=== PATIENT | female | born 1965 | race Caucasian/White ===

== ENCOUNTER 2020-06-23 06:16 | Day surgery (SDC) | payer MEDICAID ==
[2020-06-23] VITALS (9 sets, daily range): BP systolic 91–121; BP diastolic 57–79
[~2020-06-23] VITALS: Ht 172.7 cm; Wt 58.4 kg
[~2020-06-23 06:16] MED LIST: clindamycin 600mg/D5W 50ml 50 ML IV ONE; clindamycin phosphate 150mg/ml inj. ONE
[2020-06-23] MEDS ORDERED: albumin 25% 100mL bottle x 1 IV PRN (06:40)
[2020-06-23] MEDS ORDERED: PNV1TABL7 PO (06:43)
[2020-06-23] MEDS ORDERED: PROP10TA10 PO (06:43)
[2020-06-23] MEDS ORDERED: PRED5TAB PO (06:43)
[2020-06-23] MEDS ORDERED: OXYC-658 PO (06:43)
[2020-06-23 09:58] LABS: GLUCOSE,BODY FLUID 102 MG/DL; LDH,BODY FLUID 54 U/L; TOTAL PROTEIN,BODY FLUID 2.2 G/DL
[2020-06-23 11:56] LABS: LYMPHOCYTES,BODY FLUID 26 %; MONOCYTES,BODY FLUID 28 %; NEUTROPHILS,BODY FLUID 46 %
[2020-06-23 11:57] LABS: BF MESOTHELIAL CELLS FEW; BF RBC COUNT 10625 /CU MM; BF WBC COUNT 99 /CU MM (0-1000); BFAPPEAR CLOUDY; BFCOLOR OTHER; BFVOLUME 50 ML
== END 2020-06-23 10:15 | disposition home or self-care (01) ==
LOC: SSTAY O 06:16
PROVIDERS: ATTEND Radiology Vascular & Interventional Radiology
DX: K70.31 Alcoholic cirrhosis of liver with ascites (principal); Z87.19 Personal history of other diseases of the digestive system; Z79.899 Other long term (current) drug therapy
CPT/HCPCS: 49083; 82945; 83615; 84157; 87070; 89051; J3490; P9047

== ENCOUNTER 2020-06-27 11:45 | Day surgery (SDC) | payer MEDICAID ==
[~2020-06-27] VITALS: Ht 174 cm; Wt 54.5 kg
[~2020-06-27 11:45] MED LIST changes: +OXYC-658 PO; +PNV1TABL7 PO; +PRED5TAB PO; +PROP10TA10 PO; -clindamycin 600mg/D5W 50ml 50 ML IV ONE; -clindamycin phosphate 150mg/ml inj. ONE
[2020-06-27 12:05] VITALS: BP 103/69
[2020-06-27] MEDS ORDERED: fentaNYL/PF 50MCG/1 ML 2ML syringe ONE (12:32)
[2020-06-27] MEDS ORDERED: MIDAZolam 1 MG/ML 5ML VIAL ONE (12:32)
[2020-06-27] MEDS ORDERED: LIDOcaine Viscous 15ml cup ONE (12:33)
[2020-06-27 12:45] VITALS: BP 112/70
[2020-06-27 12:55] VITALS: BP 103/60
[2020-06-27 13:05] VITALS: BP 105/64
[2020-06-27 13:15] VITALS: BP 105/64
== END 2020-06-27 13:20 | disposition home or self-care (01) ==
LOC: GI LAB 11:45
PROVIDERS: ATTEND Internal Medicine Gastroenterology
DX: I85.00 Esophageal varices without bleeding (principal); K31.7 Polyp of stomach and duodenum; K76.6 Portal hypertension; K31.89 Other diseases of stomach and duodenum; K74.60 Unspecified cirrhosis of liver
CPT/HCPCS: 43251; 99152; C1773; J2250; J3010; J7040; A4620

== ENCOUNTER 2020-06-30 07:06 | Day surgery (SDC) | payer MEDICAID ==
[2020-06-30] VITALS (13 sets, daily range): BP systolic 88–109; BP diastolic 53–69
[~2020-06-30] VITALS: Ht 172.7 cm; Wt 57.2 kg
[~2020-06-30 07:06] MED LIST changes: -OXYC-658 PO; -PRED5TAB PO; -PROP10TA10 PO
[2020-06-30] MEDS ORDERED: albumin 25% 100mL bottle x 1 IV PRN (07:55)
[2020-06-30] MEDS ORDERED: OXYC-481 PO (08:22)
== END 2020-06-30 11:50 | disposition home or self-care (01) ==
LOC: SSTAY O 07:06
PROVIDERS: ATTEND Radiology Vascular & Interventional Radiology
DX: K70.31 Alcoholic cirrhosis of liver with ascites (principal); Z87.19 Personal history of other diseases of the digestive system; Z79.899 Other long term (current) drug therapy
CPT/HCPCS: 49083; P9047

== ENCOUNTER 2020-07-08 07:13 | Day surgery (SDC) | payer MEDICAID ==
[~2020-07-08] VITALS: Ht 172.7 cm; Wt 57.8 kg
[2020-07-08] VITALS (15 sets, daily range): BP systolic 91–102; BP diastolic 55–69
[~2020-07-08 07:13] MED LIST changes: +OXYC-481 PO
[2020-07-08] MEDS ORDERED: albumin 25% 100mL bottle x 1 IV PRN (07:35)
== END 2020-07-08 12:00 | disposition home or self-care (01) ==
LOC: SSTAY O 07:13
PROVIDERS: ATTEND Radiology Diagnostic Radiology
DX: K70.31 Alcoholic cirrhosis of liver with ascites (principal); Z87.19 Personal history of other diseases of the digestive system; Z79.899 Other long term (current) drug therapy; Z72.89 Other problems related to lifestyle
CPT/HCPCS: 49083; P9047

== ENCOUNTER 2020-07-15 06:57 | Day surgery (SDC) | payer MEDICAID ==
[~2020-07-15] VITALS: Ht 172.7 cm; Wt 54.2 kg
[2020-07-15] VITALS (11 sets, daily range): BP systolic 87–119; BP diastolic 46–93
[2020-07-15] MEDS ORDERED: albumin 25% 100mL bottle x 1 IV PRN (07:25)
[2020-07-15] MEDS ORDERED: PRED15SO68 PO (07:29)
[2020-07-15] MEDS ORDERED: PROP20TA6 PO (07:29)
== END 2020-07-15 11:05 | disposition home or self-care (01) ==
LOC: SSTAY O 06:57
PROVIDERS: ATTEND Radiology Vascular & Interventional Radiology
DX: K70.31 Alcoholic cirrhosis of liver with ascites (principal); Z87.19 Personal history of other diseases of the digestive system; Z79.899 Other long term (current) drug therapy; Z72.89 Other problems related to lifestyle
CPT/HCPCS: 49083; P9047

== ENCOUNTER 2020-07-18 13:08 | Emergency (ER) | payer MEDICAID ==
[~2020-07-18] VITALS: Ht 172.7 cm; Wt 50.9 kg
[~2020-07-18 13:08] MED LIST changes: +PRED15SO68 PO; +PROP20TA6 PO
[2020-07-18] MEDS ORDERED: piperacillin/tazo 3.375gm/50ml 50 ML IV ONE (14:45)
[2020-07-18] MEDS ORDERED: normal saline 1000ML IV soln IV ONE (14:45)
[2020-07-18] MEDS ORDERED: morphine 4 MG/ML inj SYRINge IV PRN (14:45)
[2020-07-18] MEDS ORDERED: ondansetron/PF 4mg/2ml inj IV ONE (14:45)
[2020-07-18] MEDS ORDERED: normal saline 1000ML IV soln IVB ONE (14:45)
[2020-07-18 14:56] LABS: BASOPHILS % (AUTO) 0.7 % (0-1); EOSINOPHILS # (AUTO) 0.1 X10'3 (0-0.9); EOSINOPHILS % (AUTO) 1.3 % (0-6); HEMATOCRIT 32.8 % (35.0-45.0); HEMOGLOBIN 11.1 g/dl (12.0-16.0); LYMPHOCYTES # (AUTO) 0.9 X10'3 (1.1-4.8); LYMPHOCYTES % (AUTO) 22.4 % (21-51); MEAN CORPUSCULAR HEMOGLOBIN 36.2 PG (27.0-31.0); MEAN CORPUSCULAR HGB CONC 33.9 g/dL (33.0-36.5); MEAN CORPUSCULAR VOLUME 106.6 FL (78-98); MEAN PLATELET VOLUME 7.2 FL (7.4-10.4); MONOCYTES # (AUTO) 0.8 X10'3 (0-0.9); MONOCYTES % (AUTO) 19.4 % (2-12); NEUTROPHILS # (AUTO) 2.3 X10'3 (1.8-7.7); NEUTROPHILS % (AUTO) 56.2 % (42-75); PLATELET COUNT 193 X10'3 (140-440); RED BLOOD COUNT 3.08 X10'6 (4.20-5.60); RED CELL DISTRIBUTION WIDTH 13.4 % (11.5-14.5)
[2020-07-18 15:12] LABS: ALANINE AMINOTRANSFERASE 26 U/L (12-78); ALBUMIN 2.5 G/DL (3.4-5.0); ALBUMIN/GLOBULIN RATIO 0.6 (1.1-1.5); ALKALINE PHOSPHATASE 105 IU/L (46-116); ANION GAP 10 (8-16); ASPARTATE AMINO TRANSFERASE 59 U/L (10-37); BILIRUBIN,TOTAL 2.3 MG/DL (0.1-1.0); BLOOD UREA NITROGEN 10 MG/DL (7-18); BUN/CREATININE RATIO 14.9 (6.6-38.0); CALCIUM 8.7 MG/DL (8.5-10.1); CHLORIDE 103 MMOL/L (99-107); CREATININE 0.67 MG/DL (0.40-0.90); GLUCOSE 113 MG/DL (70-104); POTASSIUM 4.5 MMOL/L (3.5-5.1); SODIUM 135 MMOL/L (135-145); TOTAL CARBON DIOXIDE 21.6 MMOL/L (24-32); TOTAL PROTEIN 6.9 G/DL (6.4-8.2); eGFR > 90 ML/MIN
[2020-07-18 15:50] LABS: TOTAL CELLS COUNTED 100
[2020-07-18 15:51] LABS: PLATELET ESTIMATE NORMAL
[2020-07-18] MEDS ORDERED: CEPH250T PO (16:24)
[2020-07-18] MEDS ORDERED: TRAM50TA2 PO (17:25)
[2020-07-18 17:38] VITALS: BP 90/57
== END 2020-07-18 17:25 | disposition home or self-care (01) ==
LOC: ER 13:09
DX: K70.31 Alcoholic cirrhosis of liver with ascites (principal); R19.09 Other intra-abdominal and pelvic swelling, mass and lump; R10.84 Generalized abdominal pain; Z72.89 Other problems related to lifestyle; Z79.2 Long term (current) use of antibiotics; Z79.899 Other long term (current) drug therapy
CPT/HCPCS: 36415; 74176; 80053; 83605; 84145; 85007; 85025; 87040; 96365; 96375; 99284; J2270; J2405; J2543; J7030

== ENCOUNTER 2020-07-28 06:38 | Day surgery (SDC) | payer MEDICAID ==
[2020-07-28] VITALS (8 sets, daily range): BP systolic 97–112; BP diastolic 52–76
[~2020-07-28] VITALS: Ht 172.7 cm; Wt 55.6 kg
[~2020-07-28 06:38] MED LIST changes: +CEPH250T PO; +TRAM50TA2 PO
[2020-07-28] MEDS ORDERED: albumin 25% 100mL bottle x 1 IV PRN (07:10)
[2020-07-28] MEDS ORDERED: TRAM50TA2 PO (08:04)
[2020-07-28] MEDS ORDERED: CEPH250T PO (08:05)
[2020-07-28] MEDS ORDERED: oxyCODONE IR 5mg (immed. release) tablet PO ONE (09:05)
[2020-07-28] MEDS ORDERED: traMADol 50MG tablet PO ONE (09:05)
== END 2020-07-28 10:45 | disposition home or self-care (01) ==
LOC: SSTAY O 06:38
PROVIDERS: ATTEND Radiology Vascular & Interventional Radiology
DX: K70.31 Alcoholic cirrhosis of liver with ascites (principal); Z87.19 Personal history of other diseases of the digestive system; Z79.899 Other long term (current) drug therapy
CPT/HCPCS: 49083; P9047

== ENCOUNTER 2020-08-04 07:54 | Day surgery (SDC) | payer MEDICAID ==
[~2020-08-04] VITALS: Ht 172.7 cm; Wt 53.8 kg
[2020-08-04] VITALS (8 sets, daily range): BP systolic 80–101; BP diastolic 48–70
[~2020-08-04 07:54] MED LIST changes: -PRED15SO68 PO; -PROP20TA6 PO
[2020-08-04] MEDS ORDERED: albumin 25% 100mL bottle x 1 IV PRN (08:25)
== END 2020-08-04 11:41 | disposition home or self-care (01) ==
LOC: SSTAY O 07:54
PROVIDERS: ATTEND Radiology Vascular & Interventional Radiology
DX: K70.31 Alcoholic cirrhosis of liver with ascites (principal); G89.29 Other chronic pain; Z79.899 Other long term (current) drug therapy; Z87.19 Personal history of other diseases of the digestive system
CPT/HCPCS: 49083; P9047

== ENCOUNTER 2020-08-12 07:51 | Day surgery (SDC) | payer MEDICAID ==
[~2020-08-12] VITALS: Ht 172.7 cm; Wt 53.1 kg
[2020-08-12] VITALS (8 sets, daily range): BP systolic 95–111; BP diastolic 55–72
[~2020-08-12 07:51] MED LIST changes: -CEPH250T PO
[2020-08-12] MEDS ORDERED: albumin 25% 100mL bottle x 1 IV PRN (08:05)
== END 2020-08-12 10:48 | disposition home or self-care (01) ==
LOC: SSTAY O 07:51
PROVIDERS: ATTEND Radiology Diagnostic Radiology
DX: K70.31 Alcoholic cirrhosis of liver with ascites (principal); G89.29 Other chronic pain; Z87.19 Personal history of other diseases of the digestive system; Z72.89 Other problems related to lifestyle; Z79.899 Other long term (current) drug therapy
CPT/HCPCS: 49083; P9047

== ENCOUNTER 2020-08-22 07:26 | Day surgery (SDC) | payer MEDICAID ==
[2020-08-22] VITALS (8 sets, daily range): BP systolic 90–97; BP diastolic 48–84
[~2020-08-22] VITALS: Ht 172.7 cm; Wt 55.0 kg
[~2020-08-22 07:26] MED LIST changes: -TRAM50TA2 PO
[2020-08-22] MEDS ORDERED: albumin 25% 100mL bottle x 1 IV PRN (07:40)
== END 2020-08-22 10:30 | disposition home or self-care (01) ==
LOC: SSTAY O 07:26
PROVIDERS: ATTEND Radiology Vascular & Interventional Radiology
DX: K70.31 Alcoholic cirrhosis of liver with ascites (principal); G89.29 Other chronic pain; Z79.899 Other long term (current) drug therapy; Z87.19 Personal history of other diseases of the digestive system
CPT/HCPCS: 49083; P9047

== ENCOUNTER 2020-08-26 06:39 | Day surgery (SDC) | payer MEDICAID ==
[2020-08-26] VITALS (8 sets, daily range): BP systolic 90–105; BP diastolic 57–66
[~2020-08-26] VITALS: Ht 172.7 cm; Wt 52.5 kg
[2020-08-26] MEDS ORDERED: albumin 25% 100mL bottle x 1 IV PRN (06:55)
[2020-08-26] MEDS ORDERED: LACT1CAP57 PO (06:58)
== END 2020-08-26 10:00 | disposition home or self-care (01) ==
LOC: SSTAY O 06:39
PROVIDERS: ATTEND Radiology Vascular & Interventional Radiology
DX: K70.31 Alcoholic cirrhosis of liver with ascites (principal); G89.29 Other chronic pain; Z87.19 Personal history of other diseases of the digestive system; Z72.89 Other problems related to lifestyle; Z79.899 Other long term (current) drug therapy
CPT/HCPCS: 49083; P9047

== ENCOUNTER 2020-09-01 07:22 | Day surgery (SDC) | payer MEDICAID ==
[2020-09-01] VITALS (8 sets, daily range): BP systolic 90–122; BP diastolic 57–69
[~2020-09-01] VITALS: Ht 172.7 cm; Wt 53.9 kg
[~2020-09-01 07:22] MED LIST changes: +LACT1CAP57 PO
[2020-09-01] MEDS ORDERED: SPIR25TA5 PO (08:13)
[2020-09-01] MEDS ORDERED: albumin (human) 25% 100 ML IV solution IV ONE (10:05)
[2020-09-01] MEDS ORDERED: normal saline 1000ml 1,000 ML IV SCH (10:05)
== END 2020-09-01 11:00 | disposition home or self-care (01) ==
LOC: SSTAY O 07:22
PROVIDERS: ATTEND Radiology Diagnostic Radiology
DX: K70.31 Alcoholic cirrhosis of liver with ascites (principal); G89.29 Other chronic pain; Z87.19 Personal history of other diseases of the digestive system; Z79.899 Other long term (current) drug therapy
CPT/HCPCS: 49083; P9047

== ENCOUNTER 2020-09-05 14:57 | Emergency (ER) | payer MEDICAID ==
[~2020-09-05] VITALS: Ht 172.7 cm; Wt 52.3 kg
[~2020-09-05 14:57] MED LIST changes: +SPIR25TA5 PO
[2020-09-05 18:42] LABS: BASOPHILS % (AUTO) 0.6 % (0-1); EOSINOPHILS # (AUTO) 0.1 X10'3 (0-0.9); EOSINOPHILS % (AUTO) 1.1 % (0-6); HEMATOCRIT 33.5 % (35.0-45.0); HEMOGLOBIN 11.5 g/dl (12.0-16.0); LYMPHOCYTES % (AUTO) 16.6 % (21-51); MEAN CORPUSCULAR HEMOGLOBIN 34.3 PG (27.0-31.0); MEAN CORPUSCULAR HGB CONC 34.4 g/dL (33.0-36.5); MEAN CORPUSCULAR VOLUME 99.8 FL (78-98); MEAN PLATELET VOLUME 7.1 FL (7.4-10.4); MONOCYTES # (AUTO) 0.8 X10'3 (0-0.9); MONOCYTES % (AUTO) 12.5 % (2-12); NEUTROPHILS # (AUTO) 4.2 X10'3 (1.8-7.7); NEUTROPHILS % (AUTO) 69.2 % (42-75); PLATELET COUNT 197 X10'3 (140-440); RED BLOOD COUNT 3.36 X10'6 (4.20-5.60); RED CELL DISTRIBUTION WIDTH 14.8 % (11.5-14.5); WHITE BLOOD COUNT 6.1 X10'3 (4.5-11.0)
[2020-09-05 19:02] LABS: CLARITY,URINE SLIGHTLY CLOUDY (Clear); COLOR,URINE YELLOW (Yellow); GLUCOSE, URINE NEGATIVE (Neg); KETONES,URINE NEGATIVE (Neg); LEUKOCYTE ESTERASE ,URINE NEGATIVE (Neg); NITRITES, URINE NEGATIVE (Neg); OCCULT BLOOD,URINE NEGATIVE (Neg); PROTEIN,URINE NEGATIVE (Neg)
[2020-09-05 19:08] LABS: ALANINE AMINOTRANSFERASE 21 U/L (12-78); ALBUMIN 2.6 G/DL (3.4-5.0); ALBUMIN/GLOBULIN RATIO 0.6 (1.1-1.5); ALKALINE PHOSPHATASE 107 IU/L (46-116); ANION GAP 9 (8-16); ASPARTATE AMINO TRANSFERASE 49 U/L (10-37); BILIRUBIN,TOTAL 1.9 MG/DL (0.1-1.0); BLOOD UREA NITROGEN 12 MG/DL (7-18); CALCIUM 8.2 MG/DL (8.5-10.1); CHLORIDE 97 MMOL/L (99-107); GLUCOSE 96 MG/DL (70-104); SODIUM 129 MMOL/L (135-145); TOTAL CARBON DIOXIDE 23.5 MMOL/L (24-32); TOTAL PROTEIN 6.9 G/DL (6.4-8.2); eGFR > 90 ML/MIN
[2020-09-05 19:10] LABS: UA COLLECTION TYPE CLN CATCH MIDSTREAM
[2020-09-05 19:11] LABS: BACTERIA,URINE FEW /HPF (Neg); MUCUS STRANDS MANY /LPF (Neg); RBC,URINE 0-2 /HPF (0-2); SQUAMOUS EPITHELIAL CELL,UR MODERATE /LPF (FEW); WBC,URINE 0-4 /HPF (0-4)
[2020-09-05] MEDS ORDERED: PROCHC RC (19:32)
[2020-09-05] MEDS ORDERED: oxyCODONE IR 5mg (immed. release) tablet PO ONE (19:40)
[2020-09-05 19:59] VITALS: BP 95/64
== END 2020-09-05 19:40 | disposition home or self-care (01) ==
LOC: ER 14:58
DX: K62.5 Hemorrhage of anus and rectum (principal); Z79.899 Other long term (current) drug therapy
CPT/HCPCS: 36415; 80053; 81001; 85025; 99283

== ENCOUNTER 2020-09-09 07:05 | Day surgery (SDC) | payer MEDICAID ==
[~2020-09-09] VITALS: Ht 172.7 cm; Wt 54.3 kg
[2020-09-09] VITALS (9 sets, daily range): BP systolic 90–112; BP diastolic 52–67
[~2020-09-09 07:05] MED LIST changes: +PROCHC RC
[2020-09-09] MEDS ORDERED: RIFA200T2 PO (07:22)
[2020-09-09] MEDS ORDERED: albumin 25% 100mL bottle x 1 IV PRN (07:35)
[2020-09-09] MEDS ORDERED: LIDOcaine 1% (10mg/ml) 2ml vial ONE (07:41)
== END 2020-09-09 10:55 | disposition home or self-care (01) ==
LOC: SSTAY O 07:05
PROVIDERS: ATTEND Radiology Vascular & Interventional Radiology
DX: K70.31 Alcoholic cirrhosis of liver with ascites (principal); G89.29 Other chronic pain; Z87.19 Personal history of other diseases of the digestive system; Z72.89 Other problems related to lifestyle
CPT/HCPCS: 49083; J2001; P9047

== ENCOUNTER 2020-09-16 07:08 | Day surgery (SDC) | payer MEDICAID ==
[2020-09-16] VITALS (9 sets, daily range): BP systolic 93–109; BP diastolic 51–70
[~2020-09-16] VITALS: Ht 172.7 cm; Wt 55.9 kg
[~2020-09-16 07:08] MED LIST changes: -LACT1CAP57 PO; +RIFA200T2 PO
[2020-09-16] MEDS ORDERED: albumin 25% 100mL bottle x 1 IV PRN (07:30)
== END 2020-09-16 11:08 | disposition home or self-care (01) ==
LOC: SSTAY O 07:08
PROVIDERS: ATTEND Radiology Vascular & Interventional Radiology
DX: K70.31 Alcoholic cirrhosis of liver with ascites (principal); G89.29 Other chronic pain; Z79.899 Other long term (current) drug therapy
CPT/HCPCS: 49083; P9047

== ENCOUNTER 2020-09-23 06:57 | Day surgery (SDC) | payer MEDICAID ==
[2020-09-23] VITALS (9 sets, daily range): BP systolic 92–128; BP diastolic 37–84
[~2020-09-23] VITALS: Ht 172.7 cm; Wt 57.2 kg
[~2020-09-23 06:57] MED LIST changes: -PROCHC RC
[2020-09-23] MEDS ORDERED: albumin 25% 100mL bottle x 1 IV PRN (07:15)
[2020-09-23] MEDS ORDERED: normal saline 1000ml 1,000 ML IV PRN (07:15)
== END 2020-09-23 11:00 | disposition home or self-care (01) ==
LOC: SSTAY O 06:57
PROVIDERS: ATTEND Radiology Vascular & Interventional Radiology
DX: K70.31 Alcoholic cirrhosis of liver with ascites (principal); R14.0 Abdominal distension (gaseous); G89.29 Other chronic pain; M54.9 Dorsalgia, unspecified; Z79.899 Other long term (current) drug therapy; Z98.890 Other specified postprocedural states
CPT/HCPCS: 49083; P9047

== ENCOUNTER 2020-09-29 06:54 | Day surgery (SDC) | payer MEDICAID ==
[2020-09-29] VITALS (7 sets, daily range): BP systolic 98–130; BP diastolic 64–81
[~2020-09-29] VITALS: Ht 172.7 cm; Wt 58.1 kg
[~2020-09-29 06:54] MED LIST changes: -SPIR25TA5 PO
[2020-09-29] MEDS ORDERED: albumin 25% 100mL bottle x 1 IV PRN (07:30)
== END 2020-09-29 11:00 | disposition home or self-care (01) ==
LOC: SSTAY O 06:54
PROVIDERS: ATTEND Radiology Diagnostic Radiology
DX: K70.31 Alcoholic cirrhosis of liver with ascites (principal); G89.29 Other chronic pain; Z87.19 Personal history of other diseases of the digestive system; Z72.89 Other problems related to lifestyle
CPT/HCPCS: 49083; P9047

== ENCOUNTER 2020-10-05 09:50 | Emergency (ER) | payer MEDICAID ==
[~2020-10-05] VITALS: Ht 172.7 cm; Wt 55.9 kg
[2020-10-05 10:31] LABS: BASOPHILS % (AUTO) 0.4 % (0-1); EOSINOPHILS # (AUTO) 0.1 X10'3 (0-0.9); EOSINOPHILS % (AUTO) 0.8 % (0-6); HEMATOCRIT 33.3 % (35.0-45.0); HEMOGLOBIN 11.4 g/dl (12.0-16.0); LYMPHOCYTES # (AUTO) 0.7 X10'3 (1.1-4.8); LYMPHOCYTES % (AUTO) 10.7 % (21-51); MEAN CORPUSCULAR HEMOGLOBIN 33.1 PG (27.0-31.0); MEAN CORPUSCULAR HGB CONC 34.2 g/dL (33.0-36.5); MEAN CORPUSCULAR VOLUME 96.6 FL (78-98); MEAN PLATELET VOLUME 6.7 FL (7.4-10.4); MONOCYTES # (AUTO) 1.2 X10'3 (0-0.9); MONOCYTES % (AUTO) 18.1 % (2-12); NEUTROPHILS # (AUTO) 4.6 X10'3 (1.8-7.7); PLATELET COUNT 264 X10'3 (140-440); RED BLOOD COUNT 3.45 X10'6 (4.20-5.60); RED CELL DISTRIBUTION WIDTH 14.7 % (11.5-14.5); WHITE BLOOD COUNT 6.6 X10'3 (4.5-11.0)
[2020-10-05 10:44] LABS: PARTIAL THROMBOPLASTIN TIME 31 SECONDS (22-32)
[2020-10-05 10:47] LABS: PLATELET ESTIMATE NORMAL; TOTAL CELLS COUNTED 100
[2020-10-05 10:48] LABS: ALANINE AMINOTRANSFERASE 27 U/L (12-78); ALBUMIN 2.3 G/DL (3.4-5.0); ALBUMIN/GLOBULIN RATIO 0.5 (1.1-1.5); ALKALINE PHOSPHATASE 123 IU/L (46-116); ANION GAP 7 (8-16); ASPARTATE AMINO TRANSFERASE 57 U/L (10-37); BILIRUBIN,TOTAL 2.1 MG/DL (0.1-1.0); BLOOD UREA NITROGEN 15 MG/DL (7-18); BUN/CREATININE RATIO 23.8 (6.6-38.0); BURR CELLS FEW; CALCIUM 7.9 MG/DL (8.5-10.1); CHLORIDE 91 MMOL/L (99-107); CREATININE 0.63 MG/DL (0.40-0.90); GLUCOSE 124 MG/DL (70-104); LIPASE < 50 U/L (73-393); MAGNESIUM 1.9 MG/DL (1.5-2.4); TOTAL CARBON DIOXIDE 21.6 MMOL/L (24-32); TOTAL PROTEIN 6.9 G/DL (6.4-8.2); eGFR > 90 ML/MIN
[2020-10-05 10:49] LABS: POLYCHROMASIA FEW
[2020-10-05 10:55] LABS: SODIUM 120 MMOL/L (135-145)
[2020-10-05] MEDS ORDERED: albumin (human) 25% 100 ML IV solution IV ONE ×2 (11:30→15:15)
--- NOTE | 2020-10-05 13:00 | NUR ---
notified dr cunningham that paracentesis fluid stopped draining as per md he will check in few mins.
[2020-10-05] MEDS ORDERED: morphine 4 MG/ML inj SYRINge IV ONE (13:55)
[2020-10-05] MEDS ORDERED: ENZY1CAP5 PO (14:17)
[2020-10-05] MEDS ORDERED: LYSI500T11 PO (14:17)
[2020-10-05] MEDS ORDERED: CALC-1051 PO (14:17)
[2020-10-05] MEDS ORDERED: RIFA550T PO (14:17)
[2020-10-05] MEDS ORDERED: magnesium hydroxide 30ml (MOM) UD suspension PO PRN (14:40)
[2020-10-05] MEDS ORDERED: ondansetron/PF 4mg/2ml inj IV PRN (14:40)
[2020-10-05] MEDS ORDERED: acetaminophen 325mg tablet PO PRN (14:40)
[2020-10-05] MEDS ORDERED: mag hydrox/Alum hydrox/simeth 30ml oral suspension PO PRN (14:40)
[2020-10-05] MEDS ORDERED: normal saline 1000ml 1,000 ML IV SCH (16:05)
[2020-10-05] MEDS ORDERED: oxyCODONE IR 5mg (immed. release) tablet PO PRN (16:10)
[2020-10-05] MEDS ORDERED: [UNRECOGNIZED DRUG - OTHER] PO PRN (16:10)
[2020-10-05] MEDS: morphine 2 MG/ML inj. syringe IV PRN ×2 (16:48→19:52)
[2020-10-05] MEDS ORDERED: bumetanide 0.25mg/ml 4ml vial IV SCH (19:45)
[2020-10-05] MEDS ORDERED: morphine 2 MG/ML inj. syringe IV PRN (19:45)
[2020-10-05] MEDS ORDERED: rifaximin 550mg tablet PO SCH (20:00)
[2020-10-05] MEDS ORDERED: furosemide 20 MG/2 ML vial IV SCH (20:00)
[2020-10-05 21:11] VITALS: BP 97/59
[2020-10-06] MEDS ORDERED: multivitamins, therapeutics tablet PO SCH (08:00)
[2020-10-06] MEDS ORDERED: enoxaparin 40mg/0.4ml syringe SUBCUT SCH (08:00)
[2020-10-06] MEDS ORDERED: calcium carbonate/vitamin D3 tablet PO SCH (08:00)
== END 2020-10-05 21:13 | disposition short-term general hospital (02) ==
LOC: ER 09:51 → ED HOLD 14:36 → UNDOADMIN 14:36 → UNDODISIN 21:10
DX: E87.1 Hypo-osmolality and hyponatremia (principal); Z20.822 Contact with and (suspected) exposure to COVID-19; K72.00 Acute and subacute hepatic failure without coma; R10.84 Generalized abdominal pain; I10 Essential (primary) hypertension; Z72.89 Other problems related to lifestyle; Z88.8 Allergy status to other drugs, medicaments and biological substances; Z79.899 Other long term (current) drug therapy
CPT/HCPCS: 49083; 76705; 80053; 82140; 83690; 83735; 85007; 85025; 85610; 85730; 87635; 93306; 96361; 96374; 96375; 96376; 99291; J2270; J7030; P9047; G0378

== ENCOUNTER 2020-10-21 07:38 | Day surgery (SDC) | payer MEDICAID ==
[~2020-10-21] VITALS: Ht 172.7 cm; Wt 54.8 kg
[~2020-10-21 07:38] MED LIST changes: +CALC-1051 PO; +ENZY1CAP5 PO; +LYSI500T11 PO; -RIFA200T2 PO; +RIFA550T PO
[2020-10-21] MEDS ORDERED: LACT10SO3 PO (07:59)
[2020-10-21 08:14] VITALS: BP 101/59
== END 2020-10-21 09:30 | disposition home or self-care (01) ==
LOC: SSTAY O 07:38
PROVIDERS: ATTEND Radiology Vascular & Interventional Radiology
DX: K70.31 Alcoholic cirrhosis of liver with ascites (principal); Z53.8 Procedure and treatment not carried out for other reasons; G89.29 Other chronic pain; Z98.890 Other specified postprocedural states; Z72.89 Other problems related to lifestyle
CPT/HCPCS: 76705

== ENCOUNTER 2020-10-27 09:13 | Day surgery (SDC) | payer MEDICAID ==
[~2020-10-27] VITALS: Ht 172.7 cm; Wt 57.9 kg
[~2020-10-27 09:13] MED LIST changes: +LACT10SO3 PO; -RIFA550T PO
[2020-10-27 09:40] VITALS: BP 108/64
[2020-10-27 09:45] VITALS: BP 108/64
[2020-10-27] MEDS ORDERED: normal saline 1000ml 1,000 ML IV PRN (09:45)
[2020-10-27] MEDS ORDERED: albumin 25% 100mL bottle x 1 IV PRN (09:45)
[2020-10-27 10:05] VITALS: BP 108/68
[2020-10-27 10:20] VITALS: BP 100/69
[2020-10-27 10:35] VITALS: BP_SYST 103; BP_SYST 105; BP_DIAS 64; BP_DIAS 65
== END 2020-10-27 11:00 | disposition home or self-care (01) ==
LOC: SSTAY O 09:13
PROVIDERS: ATTEND Radiology Vascular & Interventional Radiology
DX: K70.31 Alcoholic cirrhosis of liver with ascites (principal); G89.29 Other chronic pain; Z98.890 Other specified postprocedural states; Z87.19 Personal history of other diseases of the digestive system
CPT/HCPCS: 49083

== ENCOUNTER 2020-10-31 16:00 | Emergency (ER) | payer MEDICAID ==
[~2020-10-31] VITALS: Ht 172.7 cm; Wt 55.7 kg
[2020-10-31 16:11] VITALS: BP 111/65
[2020-10-31 17:07] LABS: BASOPHILS % (AUTO) 0.6 % (0-1); EOSINOPHILS # (AUTO) 0.1 X10'3 (0-0.9); EOSINOPHILS % (AUTO) 2.4 % (0-6); HEMATOCRIT 30.4 % (35.0-45.0); HEMOGLOBIN 10.3 g/dl (12.0-16.0); LYMPHOCYTES % (AUTO) 21.6 % (21-51); MEAN CORPUSCULAR HEMOGLOBIN 33.5 PG (27.0-31.0); MEAN CORPUSCULAR HGB CONC 33.9 g/dL (33.0-36.5); MEAN CORPUSCULAR VOLUME 98.7 FL (78-98); MEAN PLATELET VOLUME 6.5 FL (7.4-10.4); MONOCYTES # (AUTO) 0.9 X10'3 (0-0.9); MONOCYTES % (AUTO) 19.2 % (2-12); NEUTROPHILS # (AUTO) 2.5 X10'3 (1.8-7.7); NEUTROPHILS % (AUTO) 56.2 % (42-75); PLATELET COUNT 155 X10'3 (140-440); RED BLOOD COUNT 3.08 X10'6 (4.20-5.60); RED CELL DISTRIBUTION WIDTH 17.3 % (11.5-14.5); WHITE BLOOD COUNT 4.4 X10'3 (4.5-11.0)
[2020-10-31 17:19] LABS: ALANINE AMINOTRANSFERASE 13 U/L (12-78); ALBUMIN 2.6 G/DL (3.4-5.0); ALBUMIN/GLOBULIN RATIO 0.7 (1.1-1.5); ALKALINE PHOSPHATASE 89 IU/L (46-116); ANION GAP 7 (8-16); ASPARTATE AMINO TRANSFERASE 31 U/L (10-37); BILIRUBIN,TOTAL 2.8 MG/DL (0.1-1.0); BLOOD UREA NITROGEN 8 MG/DL (7-18); BUN/CREATININE RATIO 14.5 (6.6-38.0); CALCIUM 7.7 MG/DL (8.5-10.1); CHLORIDE 103 MMOL/L (99-107); CREATININE 0.55 MG/DL (0.40-0.90); GLUCOSE 97 MG/DL (70-104); MAGNESIUM 1.6 MG/DL (1.5-2.4); POTASSIUM 3.2 MMOL/L (3.5-5.1); SODIUM 138 MMOL/L (135-145); TOTAL PROTEIN 6.4 G/DL (6.4-8.2); eGFR > 90 ML/MIN
[2020-10-31 21:03] LABS: BILIRUBIN,DIRECT 0.8 MG/DL (0-0.3)
[2020-10-31] MEDS ORDERED: potassium Cl 20 mEq SR tablet PO ONE ×2 (21:10→22:10)
[2020-10-31 21:31] LABS: CLARITY,URINE CLOUDY (Clear); COLOR,URINE DARK YELLOW (Yellow); GLUCOSE, URINE NEGATIVE (Neg); KETONES,URINE TRACE mg/dl (Neg); LEUKOCYTE ESTERASE ,URINE NEGATIVE (Neg); NITRITES, URINE NEGATIVE (Neg); OCCULT BLOOD,URINE NEGATIVE (Neg); PH,URINE 5.5 (4.8-8.0); PROTEIN,URINE TRACE mg/dl (Neg); UA COLLECTION TYPE CLN CATCH MIDSTREAM
[2020-10-31] MEDS ORDERED: iohexol 300mg/ml 100ml inj. ONE (21:35)
[2020-10-31 21:43] LABS: BACTERIA,URINE NONE SEEN /HPF (Neg); HYALINE CASTS 0-3 /LPF (NEGATIVE); MUCUS STRANDS MANY /LPF (Neg); RBC,URINE NONE SEEN /HPF (0-2); SQUAMOUS EPITHELIAL CELL,UR MODERATE /LPF (FEW); WBC,URINE 0-4 /HPF (0-4)
[2020-10-31 21:44] LABS: RENAL CELLS, URINE FEW /HPF; TRANSITIONAL EPI CELLS,URINE FEW /HPF
[2020-10-31] MEDS ORDERED: ondansetron 4mg rapidly disintigrating tab PO ONE (23:05)
[2020-10-31] MEDS ORDERED: HYDROcodone/acetaminophen 5mg/325mg tablet PO ONE (23:05)
[2020-11-01 01:45] LABS: BANDS% (MANUAL) 2 % (0-10); LYMPHOCYTES % (MANUAL) 23 % (21-51); MONOCYTES % (MANUAL) 13 % (2-12); NEUTROPHILS % (MANUAL) 60 % (42-75); TOTAL CELLS COUNTED 100
[2020-11-01 01:46] LABS: EOSINOPHILS % (MANUAL) 2 % (0-6)
[2020-11-01 01:48] LABS: PLATELET ESTIMATE NORMAL
[2020-11-01 01:50] LABS: ANISOCYTOSIS 1+
== END 2020-11-01 02:07 | disposition home or self-care (01) ==
LOC: ER 16:02
DX: R18.8 Other ascites (principal); R10.31 Right lower quadrant pain; R10.13 Epigastric pain; K74.60 Unspecified cirrhosis of liver; I86.8 Varicose veins of other specified sites; K76.6 Portal hypertension; Z72.89 Other problems related to lifestyle; Z88.8 Allergy status to other drugs, medicaments and biological substances; Z79.899 Other long term (current) drug therapy
CPT/HCPCS: 36415; 71045; 74176; 80053; 81001; 82248; 83735; 85007; 85025; 99285; Q9967

== ENCOUNTER 2020-11-07 07:02 | Day surgery (SDC) | payer MEDICAID ==
[2020-11-07] VITALS (17 sets, daily range): BP systolic 90–112; BP diastolic 53–83
[~2020-11-07] VITALS: Ht 172.7 cm; Wt 57.4 kg
[2020-11-07] MEDS ORDERED: albumin 25% 100mL bottle x 1 IV PRN (07:20)
[2020-11-07] MEDS ORDERED: SPIR1TAB4 PO (07:25)
[2020-11-07] MEDS ORDERED: FURO-150 PO (07:26)
== END 2020-11-07 12:05 | disposition home or self-care (01) ==
LOC: SSTAY O 07:02
PROVIDERS: ATTEND Radiology Vascular & Interventional Radiology
DX: K70.31 Alcoholic cirrhosis of liver with ascites (principal); I10 Essential (primary) hypertension; K76.6 Portal hypertension; G89.29 Other chronic pain; Z98.890 Other specified postprocedural states; Z88.8 Allergy status to other drugs, medicaments and biological substances; Z79.899 Other long term (current) drug therapy
CPT/HCPCS: 49083; P9047

== ENCOUNTER 2020-11-22 07:11 | Day surgery (SDC) | payer MEDICAID ==
[2020-11-22] VITALS (9 sets, daily range): BP systolic 79–107; BP diastolic 37–57
[~2020-11-22] VITALS: Ht 172.7 cm; Wt 52.9 kg
[~2020-11-22 07:11] MED LIST changes: -CALC-1051 PO; -ENZY1CAP5 PO; +FURO-150 PO; -LYSI500T11 PO; +SPIR1TAB4 PO
[2020-11-22] MEDS ORDERED: albumin 25% 100mL bottle x 1 IV PRN (07:40)
[2020-11-22] MEDS ORDERED: LIDOcaine 1% (10mg/ml) 2ml vial ONE (09:55)
== END 2020-11-22 11:10 | disposition home or self-care (01) ==
LOC: SSTAY O 07:11
PROVIDERS: ATTEND Radiology Vascular & Interventional Radiology
DX: K70.31 Alcoholic cirrhosis of liver with ascites (principal); K76.6 Portal hypertension; G89.29 Other chronic pain; Z87.19 Personal history of other diseases of the digestive system; Z98.890 Other specified postprocedural states; Z72.89 Other problems related to lifestyle
CPT/HCPCS: 49083; J2001; P9047

== ENCOUNTER 2020-12-16 06:10 | Day surgery (SDC) | payer MEDICAID ==
[~2020-12-16] VITALS: Ht 172.7 cm; Wt 55.9 kg
[2020-12-16] VITALS (14 sets, daily range): BP systolic 79–99; BP diastolic 43–63
[2020-12-16] MEDS ORDERED: TRAZ-251 PO (06:24)
[2020-12-16] MEDS ORDERED: albumin 25% 100mL bottle x 1 IV PRN (06:35)
== END 2020-12-16 11:13 | disposition home or self-care (01) ==
LOC: SSTAY O 06:10
PROVIDERS: ATTEND Radiology Diagnostic Radiology
DX: K70.31 Alcoholic cirrhosis of liver with ascites (principal); G89.29 Other chronic pain; K76.6 Portal hypertension; Z88.8 Allergy status to other drugs, medicaments and biological substances; Z87.19 Personal history of other diseases of the digestive system; Z79.899 Other long term (current) drug therapy
CPT/HCPCS: 49083; P9047

== ENCOUNTER 2021-01-06 07:16 | Day surgery (SDC) | payer MEDICAID ==
[~2021-01-06] VITALS: Ht 174 cm; Wt 52.7 kg
[~2021-01-06 07:16] MED LIST changes: +TRAZ-251 PO
[2021-01-06] MEDS ORDERED: albumin 25% 100mL bottle x 1 IV PRN (07:35)
[2021-01-06 08:00] VITALS: BP 98/62
[2021-01-06 09:05] VITALS: BP 106/63
== END 2021-01-06 09:07 | disposition home or self-care (01) ==
LOC: SSTAY O 07:16
PROVIDERS: ATTEND Radiology Vascular & Interventional Radiology
DX: K70.31 Alcoholic cirrhosis of liver with ascites (principal); G89.29 Other chronic pain; K76.6 Portal hypertension; Z87.19 Personal history of other diseases of the digestive system; Z79.899 Other long term (current) drug therapy
CPT/HCPCS: 76705

== ENCOUNTER 2021-01-20 08:43 | Day surgery (SDC) | payer MEDICAID ==
--- NOTE | 2021-01-20 09:53 | NUR ---
ultrasound only, no fluid to drain.
== END 2021-01-20 09:55 | disposition home or self-care (01) ==
LOC: SSTAY O 08:43
PROVIDERS: ATTEND Preventive Medicine Aerospace Medicine
DX: K70.31 Alcoholic cirrhosis of liver with ascites (principal); Z53.8 Procedure and treatment not carried out for other reasons; R14.0 Abdominal distension (gaseous); K76.6 Portal hypertension; G89.29 Other chronic pain; Z72.89 Other problems related to lifestyle; Z98.890 Other specified postprocedural states; Z88.8 Allergy status to other drugs, medicaments and biological substances; Z79.899 Other long term (current) drug therapy
CPT/HCPCS: 76705

== ENCOUNTER 2021-02-10 07:39 | Day surgery (SDC) | payer MEDICAID ==
[~2021-02-10] VITALS: Ht 172.7 cm; Wt 53.1 kg
[2021-02-10] MEDS ORDERED: albumin 25% 100mL bottle x 1 IV PRN (08:05)
[2021-02-10 08:17] VITALS: BP 96/55
--- NOTE | 2021-02-10 09:00 | NUR ---
Patient discharged without intervention/ paracentesis
== END 2021-02-10 09:15 | disposition home or self-care (01) ==
LOC: SSTAY O 07:39
PROVIDERS: ATTEND Radiology Vascular & Interventional Radiology
DX: K70.31 Alcoholic cirrhosis of liver with ascites (principal); K76.6 Portal hypertension; G89.29 Other chronic pain; Z87.19 Personal history of other diseases of the digestive system
CPT/HCPCS: 76705

== ENCOUNTER 2023-11-02 06:36 | Emergency (ER) | payer MEDICAID ==
[~2023-11-02] VITALS: Ht 172.7 cm; Wt 55.6 kg
[~2023-11-02 06:36] MED LIST changes: -FURO-150 PO; -SPIR1TAB4 PO
[2023-11-02 06:47] VITALS: BP 121/69; PULSE 69; RESP 16; TEMP 97.9; O2SAT 98
== END 2023-11-02 10:15 | disposition left against medical advice (07) ==
LOC: ER 06:37
DX: R51.9 Headache, unspecified (principal); Z53.21 Procedure and treatment not carried out due to patient leaving prior to being seen by health care provider; Z88.8 Allergy status to other drugs, medicaments and biological substances; X58.XXXA Exposure to other specified factors, initial encounter; Y93.89 Activity, other specified; Y92.89 Other specified places as the place of occurrence of the external cause; Y99.8 Other external cause status